=== PATIENT | female | born 1995 | race Two or more races ===

== ENCOUNTER 2019-07-17 07:52 | Observation (INO) | payer MEDICAID ==
[2019-07-17] MEDS ORDERED: PREN-96 PO (09:02)
== END 2019-07-17 09:10 | disposition home or self-care (01) | DRG 566 ==
LOC: LDRP 07:52
PROVIDERS: ADMIT Specialist; ATTEND Specialist
DX: O40.3XX0 Polyhydramnios, third trimester, not applicable or unspecified (principal); Z3A.31 31 weeks gestation of pregnancy
CPT/HCPCS: 59025; 76818; 81002; G0378

== ENCOUNTER 2019-07-20 08:40 | Observation (INO) | payer MEDICAID ==
[~2019-07-20 08:40] MED LIST: PREN-96 PO
== END 2019-07-20 09:50 | disposition home or self-care (01) | DRG 566 ==
LOC: LDRP 08:40
PROVIDERS: ADMIT Specialist; ATTEND Specialist
DX: O40.3XX0 Polyhydramnios, third trimester, not applicable or unspecified (principal); Z3A.32 32 weeks gestation of pregnancy
CPT/HCPCS: 59025; 76818; 81002; G0378

== ENCOUNTER 2019-07-24 08:15 | Observation (INO) | payer MEDICAID | END 2019-07-24 09:20 | disposition home or self-care (01) | DRG 566 | LOC: LDRP 08:15 | PROVIDERS: ADMIT Obstetrics & Gynecology; ATTEND Obstetrics & Gynecology | DX: O40.3XX0 Polyhydramnios, third trimester, not applicable or unspecified (principal); Z3A.32 32 weeks gestation of pregnancy | CPT/HCPCS: 59025; 76818; 81002; G0378 ==

== ENCOUNTER 2019-07-27 14:38 | Observation (INO) | payer MEDICAID ==
[~2019-07-27] VITALS: Ht 157.5 cm; Wt 63.0 kg
== END 2019-07-27 16:05 | disposition home or self-care (01) | DRG 566 ==
LOC: LDRP 14:38
PROVIDERS: ADMIT Specialist; ATTEND Specialist
DX: O40.3XX0 Polyhydramnios, third trimester, not applicable or unspecified (principal); Z3A.33 33 weeks gestation of pregnancy
CPT/HCPCS: 59025; 76818; 81002; G0378

== ENCOUNTER 2019-07-31 10:44 | Observation (INO) | payer MEDICAID ==
[~2019-07-31] VITALS: Ht 157.5 cm; Wt 63.5 kg
[2019-07-31] MEDS ORDERED: TERBUTALINE SULFATE 1 MG/ML 1ML VIAL SC SCH (11:45)
[2019-07-31] MEDS ORDERED: TERBUTALINE SULFATE 1 MG/ML 1ML VIAL SC ONE (11:49)
== END 2019-07-31 12:45 | disposition home or self-care (01) | DRG 566 ==
LOC: LDRP 10:44
PROVIDERS: ADMIT Obstetrics & Gynecology; ATTEND Obstetrics & Gynecology
DX: O40.3XX0 Polyhydramnios, third trimester, not applicable or unspecified (principal); Z3A.33 33 weeks gestation of pregnancy
CPT/HCPCS: 59025; 76818; 81002; 96372; G0378; J3105

== ENCOUNTER 2019-08-01 18:30 | Observation (INO) | payer MEDICAID | END 2019-08-01 19:22 | disposition home or self-care (01) | DRG 566 | LOC: LDRP 18:30 | PROVIDERS: ADMIT Obstetrics & Gynecology; ATTEND Obstetrics & Gynecology | DX: O40.3XX0 Polyhydramnios, third trimester, not applicable or unspecified (principal); O26.893 Other specified pregnancy related conditions, third trimester; R10.9 Unspecified abdominal pain; Z3A.33 33 weeks gestation of pregnancy | CPT/HCPCS: 59025; 81002; G0378 ==

== ENCOUNTER 2019-08-03 09:56 | Observation (INO) | payer MEDICAID | END 2019-08-03 10:55 | disposition home or self-care (01) | DRG 563 | LOC: LDRP 09:56 | PROVIDERS: ADMIT Obstetrics & Gynecology; ATTEND Obstetrics & Gynecology | DX: O60.03 Preterm labor without delivery, third trimester (principal); Z3A.34 34 weeks gestation of pregnancy | CPT/HCPCS: 59025; 76818; 81002; G0378 ==

== ENCOUNTER 2019-08-07 08:11 | Observation (INO) | payer MEDICAID ==
[~2019-08-07] VITALS: Ht 30.5 cm; Wt 0.5 kg
[2019-08-07] MEDS ORDERED: TERBUTALINE SULFATE 1 MG/ML 1ML VIAL SC SCH (09:15)
== END 2019-08-07 10:36 | disposition home or self-care (01) | DRG 563 ==
LOC: LDRP 08:11
PROVIDERS: ADMIT Obstetrics & Gynecology; ATTEND Obstetrics & Gynecology
DX: O60.03 Preterm labor without delivery, third trimester (principal); Z3A.34 34 weeks gestation of pregnancy
CPT/HCPCS: 59025; 76818; 81002; 96372; G0378; J3105

== ENCOUNTER 2019-08-10 08:48 | Observation (INO) | payer MEDICAID | END 2019-08-10 09:40 | disposition home or self-care (01) | DRG 566 | LOC: LDRP 08:48 | PROVIDERS: ADMIT Obstetrics & Gynecology; ATTEND Obstetrics & Gynecology | DX: O40.3XX0 Polyhydramnios, third trimester, not applicable or unspecified (principal); Z3A.35 35 weeks gestation of pregnancy | CPT/HCPCS: 59025; 76818; 81002; G0378 ==

== ENCOUNTER 2019-08-14 13:08 | Observation (INO) | payer MEDICAID | END 2019-08-14 15:00 | disposition home or self-care (01) | DRG 566 | LOC: LDRP 13:08 | PROVIDERS: ADMIT Obstetrics & Gynecology; ATTEND Obstetrics & Gynecology | DX: O40.3XX0 Polyhydramnios, third trimester, not applicable or unspecified (principal); Z3A.35 35 weeks gestation of pregnancy | CPT/HCPCS: 59025; 76818; 81002; G0378 ==

== ENCOUNTER 2019-08-25 10:00 | Observation (INO) | payer MEDICAID | END 2019-08-25 10:55 | disposition home or self-care (01) | DRG 566 | LOC: LDRP 10:00 | PROVIDERS: ADMIT Obstetrics & Gynecology; ATTEND Obstetrics & Gynecology | DX: O40.3XX0 Polyhydramnios, third trimester, not applicable or unspecified (principal); Z3A.37 37 weeks gestation of pregnancy | CPT/HCPCS: 59025; 76818; 81002; G0378 ==

== ENCOUNTER 2019-09-03 11:55 | Observation (INO) | payer MEDICAID ==
[~2019-09-03] VITALS: Ht 157.5 cm; Wt 64.4 kg
[2019-09-03] MEDS ORDERED: ACETAMINOPHEN 325 MG TAB PO ONE (12:30)
[2019-09-03] MEDS ORDERED: LACTATED RINGER'S 1,000 ML IV ONE (12:30)
[2019-09-03] MEDS: LACTATED RINGER'S 1,000 ML IV SCH ×3 (15:15→23:35)
[2019-09-03] MEDS ORDERED: ceFAZolin 1GM/50ML 50 ML IV ONE (15:15)
[2019-09-03] MEDS: ceFAZolin 1GM/50ML 50 ML IV SCH ×2 (15:59→23:35)
[2019-09-03] MEDS: ACETAMINOPHEN 325 MG TAB PO PRN (20:20)
[2019-09-03 22:17] LABS: Basophils # (auto) 0 uL; Eosinophils # (auto) 0 uL; Hematocrit 24.7 % (36.0-46.0); Hemoglobin 8.2 g/dL (12.2-16.2); Lymphocytes # (auto) 0.4 uL; Monocytes # (auto) 0.3 uL; Nucleated Red Blood Cells % 0.1 %; White Blood Cell 5.5 10^3/uL (4.4-10.8)
[2019-09-03 22:19] LABS: Basophils % (auto) 0.4 % (0.0-2.0); Lymphocytes % (auto) 7.5 % (10.0-50.0); Mean Corpuscular Hemoglobin 24.7 pg (28.0-32.0); Monocytes % (auto) 5.7 % (0.0-12.0); Neutrophils # (auto) 4.8 uL; Neutrophils % (auto) 86.4 % (37.0-80.0); Platelet Count (auto) 182 10^3/uL (140-450); Red Cell Distribution Width 17.1 % (11.8-14.3)
[2019-09-04] MEDS ORDERED: FERROUS SULFATE 325 MG TAB PO ONE (01:30)
[2019-09-04] MEDS: ACETAMINOPHEN 325 MG TAB PO PRN ×2 (01:50→08:29)
[2019-09-04] MEDS: LACTATED RINGER'S 1,000 ML IV SCH (07:34)
[2019-09-04] MEDS: ceFAZolin 1GM/50ML 50 ML IV SCH (07:34)
[2019-09-04] MEDS ORDERED: FERROUS SULFATE 325 MG TAB PO SCH (08:00)
== END 2019-09-04 12:09 | disposition home or self-care (01) | DRG 566 ==
LOC: LDRP 11:55
PROVIDERS: ADMIT Specialist; ATTEND Specialist
DX: O36.8330 Maternal care for abnormalities of the fetal heart rate or rhythm, third trimester, not applicable or unspecified (principal); O26.893 Other specified pregnancy related conditions, third trimester; R00.0 Tachycardia, unspecified; R07.0 Pain in throat; R50.9 Fever, unspecified; Z3A.38 38 weeks gestation of pregnancy
CPT/HCPCS: 36415; 59025; 76818; 81002; 85025; 87804; 94762; 96365; 96366; G0378; J0690; 96361

== ENCOUNTER 2019-09-05 05:25 | Observation (INO) | payer MEDICAID ==
[~2019-09-05] VITALS: Ht 157.5 cm; Wt 64.4 kg
[2019-09-05] MEDS ORDERED: LACTATED RINGER'S 1,000 ML IV SCH (06:07)
[2019-09-05] MEDS ORDERED: LACTATED RINGER'S 1,000 ML IV ONE (06:07)
== END 2019-09-05 07:45 | disposition home or self-care (01) | DRG 566 ==
LOC: LDRP 05:25
PROVIDERS: ADMIT Specialist; ATTEND Specialist
DX: O62.9 Abnormality of forces of labor, unspecified (principal); O26.893 Other specified pregnancy related conditions, third trimester; O21.2 Late vomiting of pregnancy; R09.89 Other specified symptoms and signs involving the circulatory and respiratory systems; Z3A.38 38 weeks gestation of pregnancy
CPT/HCPCS: 59025; 81002; 96360; G0378; 96361; 96366

== ENCOUNTER 2019-09-05 15:20 | Inpatient (IN) | payer MEDICAID ==
[~2019-09-05] VITALS: Ht 157.5 cm; Wt 64.4 kg
[2019-09-05] MEDS: LACTATED RINGER'S 1,000 ML IV SCH (16:02)
[2019-09-05] MEDS ORDERED: LACT. RINGERS/OXYTOCIN 20UNITS 1,000 ML IV SCH (16:03)
[2019-09-05] MEDS ORDERED: LIDOCAINE 2%HCL (LOCAL ANESTH.) INJ 20ML MDV ID ONE (16:15)
[2019-09-05 16:58] LABS: Basophils # (auto) 0 uL; Basophils % (auto) 0.6 % (0.0-2.0); Eosinophils # (auto) 0 uL; Mean Corpuscular Hgb Conc. 32.3 g/dL (32.0-36.0); Monocytes # (auto) 0.2 uL; Neutrophils # (auto) 4.9 uL; White Blood Cell 6.2 10^3/uL (4.4-10.8)
[2019-09-05] MEDS: PHISODERM TOP SOLN 240ML BTL TOP PRN (16:58)
[2019-09-05] MEDS: DERMOPLAST 60ML BOTTLE TOP PRN (16:58)
[2019-09-05] MEDS: WITCH HAZEL-GLYCERIN PAD TOP PRN (16:58)
[2019-09-05 17:00] LABS: Urine Bacteria NONE SEEN /hpf (None Seen); Urine Blood Negative /uL (Negative); Urine WBC 10 /hpf (0 - 5)
[2019-09-05] MEDS ORDERED: NALBUPHINE HCL 10 MG/1ml INJECTION IV PRN (17:00)
[2019-09-05] MEDS ORDERED: PROMETHAZINE HCL 25 MG/ML 1ML IV PRN (17:00)
[2019-09-05 17:02] LABS: Hematocrit 30.1 % (36.0-46.0); Hemoglobin 9.7 g/dL (12.2-16.2); Mean Corpuscular Hemoglobin 24.4 pg (28.0-32.0); Mean Corpuscular Volume 75.6 fL (80.0-100.0); Monocytes % (auto) 3.8 % (0.0-12.0); Neutrophils % (auto) 79.6 % (37.0-80.0); Nucleated Red Blood Cells % 0.5 %; Platelet Count (auto) 205 10^3/uL (140-450); Red Blood Cells 3.97 10^6/uL (4.0-5.20); Red Cell Distribution Width 17.6 % (11.8-14.3)
[2019-09-05 17:13] LABS: INR 0.9 (0.9-1.15); Partial Thromboplastin Time 32.2 sec (23.64-32.05)
[2019-09-05 17:23] LABS: Albumin 2.4 g/dL (3.4-5.0); Calcium 8.6 mg/dL (8.5-10.1); Potassium 3.6 mmol/L (3.5-5.1)
[2019-09-05 17:27] LABS: BUN/Creatinine Ratio 9.1; Bilirubin, Total 0.4 mg/dL (0.2-1.0); Total Protein 6.2 g/dL (6.4-8.2)
[2019-09-05] MEDS ORDERED: BUTORPHANOL TARTRATE 2 MG/1 ML VIAL IV PRN (17:30)
[2019-09-05] MEDS ORDERED: LACTATED RINGER'S 1,000 ML IV ONE (19:13)
[2019-09-05] MEDS ORDERED: LIDOCAINE HCL 2 %PF INJ 10ML AMP IJ ONE (19:15)
[2019-09-05] MEDS ORDERED: ePHEDrine SULFATE 50 MG/ML AMP IV ONE ×2 (19:15→21:00)
[2019-09-05] MEDS ORDERED: NALOXONE HCL 0.4 MG/ML VIAL IV ONE ×2 (19:15→21:00)
[2019-09-05] MEDS ORDERED: fentaNYL CITRATE 100 MCG/2 ML VL IV ONE (19:15)
[2019-09-05] MEDS ORDERED: fentaNYL 200mCg/100ml W ROPIVA 100 ML EPI SCH ×2 (19:15→21:00)
[2019-09-05] MEDS ORDERED: SODIUM CHLORIDE 0.9% 500 ML IV PRN (20:47)
[2019-09-05] MEDS: ceFAZolin 1GM/50ML 50 ML IV SCH (21:56)
[2019-09-06] VITALS (9 sets, daily range): BP systolic 112–139; BP diastolic 71–95
[2019-09-06] MEDS ORDERED: METHYLERGONOVINE MALEATE 0.2 MG/ML AMP IM ONE ×3 (03:32→10:22)
[2019-09-06] MEDS ORDERED: LACT. RINGERS/OXYTOCIN 20UNITS 500 ML IV ONE (05:12)
[2019-09-06] MEDS ORDERED: IBUPROFEN 600 MG TAB PO PRN (05:15)
[2019-09-06] MEDS: LACTATED RINGER'S 1,000 ML IV SCH (05:17)
[2019-09-06] MEDS: ACETAMINOPHEN 325 MG TAB PO PRN ×3 (05:36→17:46)
[2019-09-06] MEDS: ceFAZolin 1GM/50ML 50 ML IV SCH ×3 (05:36→22:00)
[2019-09-06 06:06] LABS: RPR Non Reactive (Non Reactive)
--- NOTE | 2019-09-06 07:20 | NUR ---
Ambulation: Patient OOB with standby assistance by RN. Patient ambulated to bathroom with steady gait. Patient able to void without difficulty 1000 ml. [facility] teaching provided with returned demonstration by patient. Clean gown provided and bed linen changed. Patient ambulated back to bed with steady gait and no distress noted.
[2019-09-06] MEDS ORDERED: FERROUS SULFATE 325 MG TAB PO ONE (08:00)
--- NOTE | 2019-09-06 09:40 | NUR ---
RT LUIS CARLOS AT BEDSIDE .
--- NOTE | 2019-09-06 09:40 | NUR ---
AT [address] GREEN WITH SBAR REPORT PATIENT DELIVERED AT 0449 HOUR TODAY BY , SWOLLEN BILATERAL LABIA AND NOTED FUNDUS FIRM AND AT UMBILICUS WHEN MESSAGING FUNDUS NOTED A FIST SIZE CLOT WITH MODERATE BLEEDING AND VISUALIZED SOMETHING IN VAGINA LOOKS LIKE HEMATOMA OR CLOT CAN NOT DISTINGUISH AND WHAT IT LOOKS LIKE AND I WOULD LIKE YOUR PRESENTS IN THE ROOM TO EXAMINE PATIENT. NOTIFIED PERSONAL INJURY LEGAL ASSISTANT JANESSA Marquez AND SHE ALSO SEEN CLOT. NEW ORDERS RECEIVED GIVE CYTOTEC 200 MCG SL, AND CYTOTEC 600 MCG RECTAL. PERSONAL INJURY LEGAL ASSISTANT Molina RIDDLE LEFT ROOM TO GO GET MEDICATION . ANGELINA CARE GIVEN PADS AND CHUX CHANGED AT 0930. RE-ASSESSED FUNDUS AT APPROX 0935 NOTED FIRM AT UMBILICUS AND WHEN MASSAGED FUNDUS NOTED HEAVY BLEEDING AND LARGE MULTIPLE CLOTS CAME OUT AND CALLED IMMEDIATELY AT APPROX 0936 HOUR CALLED FOR ASSISTANCE ON HEMORRHAGE. NOTED PATIENT PALE IN COLOR , FUNDUS FIRM AND AT UMBILICUS. MASSAGED PATIENTS FUNDUS NOTED MULTIPLE LARGE CLOTS AND ACTIVE BLEEDING HEAVY, BILATERAL LABIA VERY SWOLLEN . CALLED DR. GREEN AT 0937 AND HEMORRHAGE CART AT BEDSIDE. 36 HOUR O2 STARTED AT 15 L WITH A NON RE-BREATHER. PATIENT ALERT TIMES PERSON PLACE AND UNDERSTANDS WHAT'S GOING ON. FOB AT BEDSIDE TAKING CARE OF . PERSONAL INJURY LEGAL ASSISTANT AT BEDSIDE, AND Bernabe MENCHACA RN . SEE [facility] FOR VITALS. DR. GREEN 40 HOUR GAVE ORDERS FOR TYPE AND CROSS, 1 UNIT NOW STAT AND BLOOD BANK CALLED FOR STAT BLOOD, CBC, NS BOLUS OF 1000ML. NS BOLUS GIVEN AT 0942 HOUR PER ORDERED. [address] GREEN MADE AWARE PAIENT IV LOOKED LIKE IT WAS OOZING SMALL AMOUNT OF BLOOD FROM IV SITE IN AC. IV SITE PATENT . NEW ORDERS RECEIVED ORDER FFP STAT . ORDERS CARRIED OUT. CALLED OR AT 0944 HOUR TO MAKE AWARE PATIENT IS COMING FOR POSSIBLE PROCEDURE PER DR. GREEN . PATIENT TAKEN TO OR VIA BED AT 0958 HOUR AND WAS IN OR DEPARTMENT OR ROOM AT 0959 HOUR FOR PROCEDURE. IN OR PROCEDURE PER DR. GREEN ORDER 2 UNITS OF BLOOD STAT . CALLED BLOOD BANK AND PER BLOOD BACK ONE IS AVAILABLE NOW AND 2ND UNIT WILL BE AVAILABLE IN 5-6 MIN. SEE OR NOTES WHEN GIVEN BLOOD AND FFP GIVEN. A TOTAL OF ALL CHUX AND PADS WEIGHED AT 0957 HOUR WAS 1544 ML PLUS 270 ML FOR A TOTAL OF 1714 ML , PLUS 500ML ESTIMATED AT 0925 HOUR.
--- NOTE | 2019-09-06 09:40 | NUR ---
DR. GREEN AT BEDSIDE .Lagunas catheter insertion Patient assessed and determined to be in need of lagunas catheter. Order obtained from . Patient educated on catheter and reason for insertion. All questions answered. Lagunas catheter 16 guage Romansh inserted with clean sterile technique. Patient tolerated well NOTED 200 ML OF UNINE OUTPUT.
--- NOTE | 2019-09-06 09:44 | NUR ---
0942 HOUR Arsalan REYES STARTED 18 GAUGE TO LEFT AC AND 0.9 NS BOLUS STARTED. RIGHT HAND 20 GAUGE PITOCIN 20MU IN 1000 ML OF LR BOLUS STARTED PER DR. PETER SCOTT. Addendum: 09/06/19 at 1649 by Murtaza Will RN 18 GAUGE STARTED BY Adeola COOK NOT Arsalan REYES. AT 09 HOUR . Arsalan REYES RN ATTEMPTED TIMES ONE AND WAS UNABLE TO OBTAIN A IV.
--- NOTE | 2019-09-06 09:46 | NUR ---
DR. CUBA AT BEDSIDE TO TALK TO PATIENT ON PLAN OF CARE.
--- NOTE | 2019-09-06 09:49 | NUR ---
LAB AT BEDSIDE TO DRAW FOR CBC
[2019-09-06] MEDS ORDERED: LACT. RINGERS/OXYTOCIN 20UNITS 1,000 ML IV ONE (09:50)
--- NOTE | 2019-09-06 09:50 | NUR ---
Another bag of lr 1000 ml with 20 mu of pitocin was made up and taken to or department with patient .
[2019-09-06] MEDS ORDERED: LIDOCAINE HCL 2% TOP JELLY 5ML TOP ONE (09:54)
--- NOTE | 2019-09-06 09:54 | NUR ---
CALLED ALL PER PADS AND CHUX WITH BLOOD AND MULTIPLE CLOTS WEIGHED BY A FAISAL RN, AND Tay DILLON AND COAL EQUIPMENT OPERATOR MELANY PRESENT TO HELP. 0937 HOUR [address] GREEN FOR POST HEMORRHAGE. 0941 HOUR 1544 ML, 0957 HOUR 277 ML, DR. GREEN AT BEDSIDE AND AWARE OF ESTIMATED BLOOD LOSS.
[2019-09-06] MEDS ORDERED: SODIUM CHLORIDE LOCK 10 ML ONE (09:55)
[2019-09-06] MEDS ORDERED: ROCURONIUM 10MG/ML 10ML VIAL IV ONE (09:55)
[2019-09-06] MEDS ORDERED: MIDAZOLAM HCL 1MG/1ML-2 ML VIAL ONE (09:55)
[2019-09-06] MEDS ORDERED: ETOMIDATE (2MG/ML) 20ML VIAL IV ONE (09:55)
[2019-09-06] MEDS ORDERED: fentaNYL CITRATE 100 MCG/2 ML VL ONE ×2 (09:55→10:24)
[2019-09-06] MEDS ORDERED: KETAMINE HCL 10 ML ONE (09:55)
[2019-09-06] MEDS ORDERED: ONDANSETRON HCL 4 MG/2 ML VIAL ONE (09:55)
--- NOTE | 2019-09-06 09:57 | NUR ---
TEMP TAKEN 98.3 ORAL
[2019-09-06] MEDS ORDERED: ceFAZolin 1GM VL ONE (10:17)
[2019-09-06 10:22] LABS: Basophils # (auto) 0 uL; Basophils % (auto) 0.2 % (0.0-2.0); Eosinophils # (auto) 0 uL; Hemoglobin 7.2 g/dL (12.2-16.2); Lymphocytes # (auto) 1.2 uL; Monocytes # (auto) 0.4 uL; Nucleated Red Blood Cells % 0.1 %
[2019-09-06 10:27] LABS: Hematocrit 22.3 % (36.0-46.0); Lymphocytes % (auto) 13.2 % (10.0-50.0); Mean Corpuscular Hemoglobin 24.6 pg (28.0-32.0); Mean Corpuscular Hgb Conc. 32.4 g/dL (32.0-36.0); Mean Corpuscular Volume 76.1 fL (80.0-100.0); Monocytes % (auto) 4.2 % (0.0-12.0); Neutrophils # (auto) 7.3 uL; Neutrophils % (auto) 82.4 % (37.0-80.0); Platelet Count (auto) 176 10^3/uL (140-450); Red Blood Cells 2.93 10^6/uL (4.0-5.20); Red Cell Distribution Width 17.1 % (11.8-14.3); White Blood Cell 8.8 10^3/uL (4.4-10.8)
[2019-09-06] MEDS ORDERED: OXYTOCIN 10UNIT/ML 1ML VIAL ONE (10:53)
[2019-09-06] MEDS ORDERED: ONDANSETRON HCL 4 MG/2 ML VIAL IV PRN (11:00)
--- NOTE | 2019-09-06 12:25 | NUR ---
Post Op D/C for LDRP: Received patient from pacu AN DREPORT RECEIVED FROM CHAVEZ CARDENAS to room 5. Patient A/A/Ox4, abdominal binder and bilateral SCD's are in place, IV fluids placed on pump and infusing per order, incisional site dressing clean/dry/intact and Lovell Catheter to gravity draining clear yellow urine. Addendum: 09/06/19 at 1844 by Murtaza Will RN CORRECTION ON POST OP NOT D/C FOR LDRP. CORRECTION IS POST OP D&C
--- NOTE | 2019-09-06 12:30 | NUR ---
noted when patient returned to unit lr 1000 ml with 20 mu of Pitocin was hanging and and per CHAVEZ Smyth it was ordered at 0 ml/hour tko. called dr. florence to clarify orders . New orders received hang 0.9 ns and tko at 30 ml/hour, and patient is to receive ancef 1 gram /ivpb Q 8 hours times 3 bags. Addendum: 09/06/19 at 1842 by Murtaza Will RN PER RONALD 30 ML HOUR /TKO
[2019-09-06] MEDS: SODIUM CHLORIDE 0.9% 1,000 ML IV SCH (12:35)
--- NOTE | 2019-09-06 12:37 | NUR ---
Called Dr. Vargas to verify orders . give ancef 1 gram q 8 hours times three dose ivpb, patient can have reg diet and ambulate. iv fluids 0.9 n/s at tko 30 ml/hour
[2019-09-06] MEDS ORDERED: OXYTOCIN 10UNIT/ML 1ML VIAL IV ONE (13:23)
--- NOTE | 2019-09-06 13:30 | NUR ---
PATIENT MOVING AROUND SCD NOT ON AND PER MONEKE PATIENT CAN AMBULATE AND HAVE REGULAR DIET.
[2019-09-06 13:36] LABS: Basophils # (auto) 0 uL; Basophils % (auto) 0.2 % (0.0-2.0); Eosinophils # (auto) 0 uL; Hematocrit 32.7 % (36.0-46.0); Hemoglobin 11.2 g/dL (12.2-16.2); Lymphocytes # (auto) 0.9 uL; Lymphocytes % (auto) 8.4 % (10.0-50.0); Mean Corpuscular Hemoglobin 28.5 pg (28.0-32.0); Mean Corpuscular Hgb Conc. 34.3 g/dL (32.0-36.0); Monocytes # (auto) 0.5 uL; Monocytes % (auto) 4.9 % (0.0-12.0); Neutrophils # (auto) 9.2 uL; Neutrophils % (auto) 86.5 % (37.0-80.0); Nucleated Red Blood Cells % 0.1 %; Platelet Count (auto) 143 10^3/uL (140-450); Red Blood Cells 3.95 10^6/uL (4.0-5.20); White Blood Cell 10.6 10^3/uL (4.4-10.8)
[2019-09-06] MEDS ORDERED: ceFAZolin 1GM/50ML 50 ML IV SCH (14:00)
[2019-09-06 14:08] LABS: INR 1.01 (0.9-1.15); Partial Thromboplastin Time 33.9 sec (23.64-32.05)
[2019-09-06] MEDS: FERROUS SULFATE 325 MG TAB PO SCH ×2 (14:21→21:46)
[2019-09-07 02:30] VITALS: BP 108/64
[2019-09-07] MEDS: ceFAZolin 1GM/50ML 50 ML IV SCH (03:11)
[2019-09-07 05:34] LABS: Basophils # (auto) 0 uL; Basophils % (auto) 0.3 % (0.0-2.0); Eosinophils # (auto) 0 uL; Eosinophils % (auto) 0.2 % (0.0-7.0); Hematocrit 27.1 % (36.0-46.0); Hemoglobin 9.2 g/dL (12.2-16.2); Lymphocytes # (auto) 1.6 uL; Lymphocytes % (auto) 20.3 % (10.0-50.0); Mean Corpuscular Hemoglobin 28.1 pg (28.0-32.0); Mean Corpuscular Volume 82.8 fL (80.0-100.0); Monocytes # (auto) 0.4 uL; Monocytes % (auto) 5.6 % (0.0-12.0); Neutrophils # (auto) 5.8 uL; Neutrophils % (auto) 73.6 % (37.0-80.0); Nucleated Red Blood Cells % 0.2 %; Platelet Count (auto) 120 10^3/uL (140-450); Red Blood Cells 3.27 10^6/uL (4.0-5.20); Red Cell Distribution Width 19.4 % (11.8-14.3); White Blood Cell 7.9 10^3/uL (4.4-10.8)
[2019-09-07] MEDS: FERROUS SULFATE 325 MG TAB PO SCH ×3 (05:52→21:31)
[2019-09-07 05:53] LABS: INR 0.94 (0.9-1.15); Partial Thromboplastin Time 34.4 sec (23.64-32.05)
[2019-09-07] MEDS: ACETAMINOPHEN 325 MG TAB PO PRN ×3 (05:57→21:30)
--- NOTE | 2019-09-07 06:06 | NUR ---
Report received from Romeo Carr RN on stable pt. Assumed care. Addendum: 09/07/19 at 0947 by Vesta Robbins RN Amended: Links added.
[2019-09-07 07:15] VITALS: BP 118/72
--- NOTE | 2019-09-07 07:15 | NUR ---
Vaginal area very edematous, mady care and Lovell care performed. New underpad and mady pad placed with ice pack applied. 10lb sand bag also applied to perineal area. Pt denies pain or discomfort at this time. No signs of distress or discomfort noted. Addendum: 09/07/19 at 0958 by Vesta Robbins RN Amended: Links added.
--- NOTE | 2019-09-07 09:05 | NUR ---
Report given to Olive Stanley RN on stable pt. Relinquished care. Addendum: 09/07/19 at 0947 by Vesta Robbins RN Amended: Links added.
--- NOTE | 2019-09-07 09:10 | NUR ---
received report from debbie huston rn and [facility] care.
[2019-09-07 11:00] VITALS: BP 117/71
[2019-09-07] MEDS ORDERED: ceFAZolin 1GM/50ML 50 ML IV ONE (11:00)
[2019-09-07] MEDS: SODIUM CHLORIDE 0.9% 1,000 ML IV SCH (12:38)
--- NOTE | 2019-09-07 14:20 | NUR ---
dr. florence called up and updated on patient's status,no new orders received.
--- NOTE | 2019-09-07 14:45 | NUR ---
mady care done.with scant bleeding.denies pain and swelling subsiding slowly.patient is placed on right tilt position.output is adequate.
[2019-09-07 15:00] VITALS: BP 122/82
--- NOTE | 2019-09-07 15:40 | NUR ---
dr. larios and dr. florence came in and seen the patient and the perineum and no new orders received.
--- NOTE | 2019-09-07 19:29 | NUR ---
Dr. Mejia calls unit update on patient status, orders received to D/Rosy lagunas.
[2019-09-07 19:30] VITALS: BP 127/79
--- NOTE | 2019-09-07 20:30 | NUR ---
Lagunas catheter dc'd Order to discontinue lagunas catheter. Lagunas dc'd with clean technique following deflation of balloon. Patient tolerated well with no complaints of pain. Continue care.
[2019-09-07 23:00] VITALS: BP 123/60
[2019-09-08 03:00] VITALS: BP 128/71
[2019-09-08] MEDS: FERROUS SULFATE 325 MG TAB PO SCH ×3 (06:37→22:49)
[2019-09-08 07:00] VITALS: BP 136/79
[2019-09-08] MEDS: WITCH HAZEL-GLYCERIN PAD TOP PRN (07:13)
[2019-09-08] MEDS: ASCORBIC ACID 500 MG TAB PO SCH ×2 (10:36→23:01)
[2019-09-08 11:00] VITALS: BP 115/73
--- NOTE | 2019-09-08 12:47 | NUR ---
ROUNDING NOTE PT SITTING IN CHAIR AT BEDSIDE EATING LUNCH, PTS FEET PLANTED ON FLOOR, RESPIRATIONS EVEN AND NONLABORED, PT DENIES ANY PAIN AT THIS TIME. PT ENCOURAGED TO AMBULATE HALLWAY. PT VERBALIZED UNDERSTANDING AND STATES SHE WILL TRY AFTER SHE IS DONE EATING. NO DISTRESS NOTED. PTS FAMILY MEMBERS AT BESIDE WILL CONTINUE TO MONITOR.
[2019-09-08 15:00] VITALS: BP 123/82
--- NOTE | 2019-09-08 17:32 | NUR ---
AMBULATION PT AMBULATING HALLWAY VIA STEADY GAIT, NO DISTRESS NOTED.
[2019-09-08 19:00] VITALS: BP 140/84
[2019-09-08 22:36] VITALS: BP 148/58
[2019-09-08] MEDS ORDERED: ASCORBIC ACID 500 MG TAB ONE (22:59)
[2019-09-09 02:40] VITALS: BP 132/79
[2019-09-09] MEDS: FERROUS SULFATE 325 MG TAB PO SCH (05:36)
[2019-09-09 07:00] VITALS: BP 126/72
--- NOTE | 2019-09-09 09:25 | NUR ---
DISCHARGE PRESCRIPTIONS CALLED IN PTS DISCHARGE PRESCRIPTIONS [id number] 325MG PO BID # 60 WITH 3 REFILLS AND MOTRIN 600MG PO Q 6HPRN PAIN # 60 TO THE [facility] OFF [address] AND [address], PHONE NUMBER [phone], SPOKE WITH PHARMACIST KAREN. PT NOTIFIED AND VERBALIZED UNDERSTANDING TO COLOR PASTE MIXER PRESCRIPTIONS UPON DISCHARGE HOME TODAY. WILL CONTINUE TO MONITOR.
--- NOTE | 2019-09-09 09:45 | NUR ---
Discharge: Discharge instructions given as ordered. Pt encouraged to follow up with SENIOR QUALITY CONTROL INSPECTOR as instructed. All questions and concerns addressed. Patient verbalized understanding. Medication reconciliation completed and copy given to patient. Patient encouraged to prepare to depart unit.
[2019-09-09] MEDS: ASCORBIC ACID 500 MG TAB PO SCH (10:00)
[2019-09-09] MEDS: DERMOPLAST 60ML BOTTLE TOP PRN (10:26)
[2019-09-09] MEDS: PHISODERM TOP SOLN 240ML BTL TOP PRN (10:26)
[2019-09-09] MEDS: WITCH HAZEL-GLYCERIN PAD TOP PRN (10:26)
--- NOTE | 2019-09-09 10:45 | NUR ---
IV removal Pts rigth outer antecubital 18G and right hand 20G IV's DC'd with sterile technique, catheter fully intact. Pressure dressing applied to site. Patient tolerated procedure well. Discharged with aftercare instructions per MD.
[2019-09-09 10:57] VITALS: BP 115/80
--- NOTE | 2019-09-09 11:25 | NUR ---
Discharge: Patient taken to vehicle ambulatory via steady gait, pt declined wheelchair with all personal belongings, accompanied by staff and family members. No distress noted at time of departure, no adverse changes in status since initial assessment.
== END 2019-09-09 11:25 | disposition home or self-care (01) | DRG 541 ==
LOC: LDRP 15:20 → OBSVTOIN 15:45 → LDRP 15:56
PROVIDERS: ADMIT Obstetrics & Gynecology; ATTEND Obstetrics & Gynecology
PROC: 0UQC7ZZ Repair Cervix, Via Natural or Artificial Opening (ICD-10-PCS; 2019-09-06)
PROC: 30233N1 Transfusion of Nonautologous Red Blood Cells into Peripheral Vein, Percutaneous Approach (ICD-10-PCS; 2019-09-06)
PROC: 30233K1 Transfusion of Nonautologous Frozen Plasma into Peripheral Vein, Percutaneous Approach (ICD-10-PCS; 2019-09-06)
PROC: 3E0R3BZ Introduction of Anesthetic Agent into Spinal Canal, Percutaneous Approach (ICD-10-PCS; 2019-09-06)
PROC: 00HU33Z Insertion of Infusion Device into Spinal Canal, Percutaneous Approach (ICD-10-PCS; 2019-09-06)
PROC: 10E0XZZ Delivery of Products of Conception, External Approach (ICD-10-PCS; principal; 2019-09-06 09:59)
PROC: 10D17ZZ Extraction of Products of Conception, Retained, Via Natural or Artificial Opening (ICD-10-PCS; 2019-09-06 09:59)
DX: O77.0 Labor and delivery complicated by meconium in amniotic fluid (principal); O72.0 Third-stage hemorrhage; O71.3 Obstetric laceration of cervix; Z37.0 Single live birth; Z3A.38 38 weeks gestation of pregnancy; Z88.6 Allergy status to analgesic agent; O99.03 Anemia complicating the puerperium
CPT/HCPCS: 36415; 51702; 59025; 59409; 62282; 72170; 80053; 81001; 81002; 84112; 85025; 85384; 85610; 85730; 86592; 86850; 86900; 86901; 86920; 94760; 96361; 96366; 96372; 96375; G0378; J0690; J2250; J2405; J2590